=== PATIENT | female | born 1960 | race Caucasian/White ===

== ENCOUNTER 2021-11-23 11:30 | Day surgery (SDC) | payer OTHER ==
[2021-11-18 13:08] VITALS: BMI 24.7
[2021-11-23] MEDS ORDERED: PROPOFOL 40 ML ONE (11:33)
[2021-11-23 13:32] VITALS: RESP 16; TEMP 98
[2021-11-23 13:35] VITALS: BP 124/62; PULSE 68
== END 2021-11-23 14:40 | disposition home or self-care (01) ==
LOC: FASU-ENDO 11:30
PROVIDERS: ATTEND Internal Medicine Gastroenterology
PROC: 0DJD8ZZ Inspection of Lower Intestinal Tract, Via Natural or Artificial Opening Endoscopic (ICD-10-PCS; principal; 2021-11-23 12:33)
DX: Z12.11 Encounter for screening for malignant neoplasm of colon (principal)